=== PATIENT | male | born 1970 | race American Indian/Alaskan Native ===

== ENCOUNTER 2017-03-04 08:15 | Emergency (ER) | payer SELFPAY ==
[2017-03-04 09:13] LABS: Alanine Aminotransferase 20 units/L (7-56); Albumin 3.8 g/dL (3.9-5); Albumin/Globulin Ratio 1.4 %; Alkaline Phosphatase 110 units/L (35-129); Anion Gap 18 mmol/L; Blood Urea Nitrogen 12 mg/dL (9-20); Calcium 8.8 mg/dL (8.4-10.2); Carbon Dioxide 26 mmol/L (22-30); Chloride 98.4 mmol/L (98-107); Glucose 439 mg/dL (75-100); Lipase 32 units/L (13-60); Potassium 4.1 mmol/L (3.6-5.0); Sodium 138 mmol/L (137-145); Total Protein 6.5 g/dL (6.3-8.2)
[2017-03-04 09:17] LABS: Basophils % (Auto) 0.4 % (0.0-1.8); Eosinophils % (Auto) 2.1 % (0.0-4.3); Hematocrit 40.6 % (35.5-45.6); Hemoglobin 12.9 gm/dl (11.8-15.2); Mean Corpuscular HGB Conc 32 % (32-34); Mean Corpuscular Hemoglobin 28 pg (28-32); Mean Corpuscular Volume 87 fl (84-94); Platelet Count 253 K/mm3 (140-440); Red Blood Count 4.68 M/mm3 (3.65-5.03); Red Cell Distribution Width 13.7 % (13.2-15.2)
[2017-03-04 09:36] LABS: Bilirubin,Urine NEG (Negative); Blood,Urine NEG (Negative); Ketones,Urine NEG (Negative); Leukocyte Esterase,Urine NEG (Negative); Nitrite,Urine NEG (Negative); Protein,Urine <15 mg/dL mg/dL (Negative); Urobilinogen,Urine < 2.0 mg/dL (<2.0)
[2017-03-04] MEDS ORDERED: NACL 0.9% 1000 ML 1,000 ML IV ONE (18:12)
[2017-03-04] MEDS ORDERED: NACL ONE (18:38)
--- NOTE | 2017-03-04 18:48 | Emergency Department Report ---
HPI - General Chief Complaint: Abdominal Pain Time Seen by Provider: 03/04/17 17:55 - HPI HPI: This is a 46-year-old Afro-Turkish male presents to the emergency department from home with complaint of a 3 to four-week history of right lower quadrant abdominal and flank pain, worst in the flank. It starts off mostly intermittent but has gotten progressively worse and more consistent over the past few days. He denies any problems with bowel or bladder, penile discharge, nausea or vomiting, fever. He tried Tylenol for his discomfort once or twice with some transient relief. He has a history of insulin-dependent diabetes and has been out of his medication secondary to the fact that he does not have a primary care doctor or any current insurance. No recent travel or sick contacts at home. ED Past Medical Hx - Past Medical History Previous Medical History?: Yes Hx Diabetes: Yes - Surgical History Past Surgical History?: No - Social History Smoking Status: Current Every Day Smoker Substance Use Type: Alcohol, Prescribed - Medications Home Medications: Home Medications Medication Instructions Recorded Confirmed Last Taken Type Insulin Glargine,Hum.rec.anlog 6 units SQ QHS #1 pen 03/04/17 Unknown Rx [Lantus Solostar] ED Review of Systems ROS: Stated complaint: RT SIDE ABD PAIN Other details as noted in HPI Comment: All other systems reviewed and negative Constitutional: denies: chills, fever Eyes: denies: eye pain, eye discharge, vision change ENT: denies: ear pain, throat pain Respiratory: denies: cough, shortness of breath, wheezing Cardiovascular: denies: chest pain, palpitations Gastrointestinal: abdominal pain. denies: nausea, vomiting Genitourinary: denies: urgency, dysuria Musculoskeletal: denies: back pain, joint swelling, arthralgia Skin: denies: rash, lesions Neurological: denies: headache, weakness, paresthesias Physical Exam - Physical Exam Vital Signs: Vital Signs 03/04/17 08:20 Temperature 98 F Pulse Rate 104 H Respiratory 20 Rate Blood Pressure 144/87 O2 Sat by Pulse 100 Oximetry Physical Exam: GENERAL: The patient is well-developed well-nourished. HEENT: Normocephalic. Atraumatic. Extraocular motions are intact. Patient has moist mucous membranes. Pupils equal reactive to light bilaterally. NECK: Supple. Trachea is midline. CHEST/LUNGS: Clear to auscultation. There is no respiratory distress noted. HEART/CARDIOVASCULAR: Regular. There is no tachycardia. There is no gallop rub or murmur. ABDOMEN: Abdomen is soft, nontender. No guarding or rebound tenderness. Patient has normal bowel sounds. There is no abdominal distention. SKIN: Skin is warm and dry. NEURO: The patient is awake, alert, and oriented. The patient is cooperative. The patient has no focal neurologic deficits. The patient has normal speech. MUSCULOSKELETAL: There is no tenderness or deformity. There is no limitation range of motion. There is no evidence of acute injury. ED Course Vital Signs 03/04/17 08:20 Temperature 98 F Pulse Rate 104 H Respiratory 20 Rate Blood Pressure 144/87 O2 Sat by Pulse 100 Oximetry - Consultations Consultation #1: I spoke with the general surgeon on-call, Dr. Mosquera, who listened to the case presentation, lab results and imaging results. He agrees that since the patient does not have any significant discomfort, does not have a toxic or rigid abdomen, does not have any fever or leukocytosis, that the patient is most likely safe for discharge home to follow up outpatient. He does recommend checking a lactic acid level. He says that if the patient needs admission that he would be willing to follow as a consult or he is willing to see the patient in the outpatient setting. 03/04/17 22:10 ED Medical Decision Making - Lab Data Result diagrams: 03/04/17 08:30 03/04/17 08:30 - Radiology Data Radiology results: report reviewed EXAM: CT ABDOMEN PELVIS W CON HISTORY: Right flank pain TECHNIQUE: Serial axial images through the abdomen and pelvis during intravenous administration of contrast with coronal and sagittal reconstruction. PRIORS: None. FINDINGS: No focal consolidations are seen in the lung bases. No pleural effusion is seen. The liver, pancreas, spleen, gallbladder and adrenal glands appear within normal limits. Kidneys appear normal. Aorta is normal in caliber. Bladder appears normal. No free fluid. There is not evidence of bowel obstruction. The appendix appears normal. The stomach is distended with gastric contents. The duodenum appears to course to the right rather than across midline. There crowding of small bowel in the right upper quadrant of the abdomen. No acute osseous abnormality is identified. IMPRESSION: 1. The stomach is distended with gastric contents. Possibility of partial outlet obstruction is not excluded. 2. The duodenum appears to course to the right side of the abdomen. There is crowding of small bowel loops in the right side of the abdomen. This suggests malrotation. The configuration of the mesenteric veins also suggests this. This can be further assessed with upper GI study. - Medical Decision Making This is a 46-year-old male with a 3 to four-week history of right flank pains that have gotten slightly more painful and consistent. However on physical examination there is no reproducible pain in the patient does not appear to be in any distress. There are no problems with bowel or bladder, hematuria, fever. Patient's labs are mostly unremarkable except for hyperglycemia with a blood sugar of about 450. There is no elevated anion gap the patient does not appear to be in diabetic ketoacidosis. He was given a 1 L of IV fluid and 7 units of IV insulin and upon reevaluation his blood sugars down to 180. There is no leukocytosis and the patient has normal belly labs including bilirubin, lipase and LFTs. There is no Achilles function. Urinalysis does not show any urinary tract infection or any hematuria. A CT of the abdomen and pelvis with IV contrast was done that came back showing some gastric distention that could be some level of a obstruction and there is some reversal of the duodenal intestines that shows some malrotation. I spoke with the general surgeon on- call who said that based on the physical examination, vitals, labs that the patient does not appear to necessarily need admission. A lactic acid was also checked and it was in the normal range so there is also low suspicion for any mesenteric ischemia or any serious acute process. Probably reasons the patient appears safe for discharge home and is asking for discharge home as well. He will be encouraged to follow-up with a primary care doctor and has been given the general surgery referral as well. The patient was given a refill of his Lantus pen as he says this is all he is to take for his diabetes and we also discussed dietary changes to me. He will return to the ER immediately with any worsening of symptoms or any acute distress. - Differential Diagnosis food poisoning, nephrolithiasis, cholecystitis, colitis, diverticulitis Critical Care Time: No Critical care attestation.: If time is entered above; I have spent that time in minutes in the direct care of this critically ill patient, excluding procedure time. ED Disposition Clinical Impression: Right flank pain, Malrotation of intestine, Hyperglycemia Uncontrolled diabetes mellitus Qualifiers: Diabetes mellitus type: type 1 Diabetes mellitus complication status: with hyperglycemia Qualified Code(s): E10.65 - Type 1 diabetes mellitus with hyperglycemia Disposition: DISCHARGED TO HOME OR SELFCARE Is pt being admited?: No Condition: Stable Instructions: Flank Pain (ED), Diabetic Hyperglycemia (ED) Additional Instructions: Please follow-up with the general surgeon as soon as possible. Please find a primary care physician to follow up with as well. Please restart your Lantus as previously prescribed. Check your blood sugar multiple times each day. Try to stay away from foods that are high in sugar, carbohydrates and starches in order to help your diabetes. Return to the emergency department with any worsening of her symptoms, intractable vomiting, intractable abdominal pains, or any acute distress. Prescriptions: Insulin Glargine,Hum.rec.anlog [Lantus Solostar] 6 units SQ QHS #1 pen Referrals: PRIMARY CARE, [Primary Care Provider] - 3-5 Days BRUNA MOSQUERA MD [Staff Physician] - 3-5 Days [facility] [Outside] - 3-5 Days [facility] [Outside] - 3-5 Days [facility] [Outside] - 3-5 Days Time of Disposition: 22:15
--- NOTE | 2017-03-04 20:21 | Cat Scan Report ---
FINAL REPORT EXAM: CT ABDOMEN PELVIS W CON HISTORY: Right flank pain TECHNIQUE: Serial axial images through the abdomen and pelvis during intravenous administration of contrast with coronal and sagittal reconstruction. PRIORS: None. FINDINGS: No focal consolidations are seen in the lung bases. No pleural effusion is seen. The liver, pancreas, spleen, gallbladder and adrenal glands appear within normal limits. Kidneys appear normal. Aorta is normal in caliber. Bladder appears normal. No free fluid. There is not evidence of bowel obstruction. The appendix appears normal. The stomach is distended with gastric contents. The duodenum appears to course to the right rather than across midline. There crowding of small bowel in the right upper quadrant of the abdomen. No acute osseous abnormality is identified. IMPRESSION: 1. The stomach is distended with gastric contents. Possibility of partial outlet obstruction is not excluded. 2. The duodenum appears to course to the right side of the abdomen. There is crowding of small bowel loops in the right side of the abdomen. This suggests malrotation. The configuration of the mesenteric veins also suggests this. This can be further assessed with upper GI study.
[2017-03-04 22:34] VITALS: BP 131/77
== END 2017-03-04 22:35 | disposition home or self-care (01) ==
LOC: ED 08:15
DX: E10.65 Type 1 diabetes mellitus with hyperglycemia (principal); R10.31 Right lower quadrant pain; Q43.3 Congenital malformations of intestinal fixation; F17.200 Nicotine dependence, unspecified, uncomplicated
CPT/HCPCS: 36415; 74177; 80053; 81001; 82140; 82962; 83036; 83690; 85025; 96361; 96374; 99284; J7030; Q9967; J1815

== ENCOUNTER 2018-01-30 09:41 | Emergency (ER) | payer OTHER ==
[2018-01-30] MEDS ORDERED: NACL 0.9% 1000 ML 1,000 ML IV ONE (11:56)
--- NOTE | 2018-01-30 12:00 | Emergency Department Report ---
ED Abdominal Pain HPI - General Chief Complaint: Abdominal Pain Stated Complaint: LEFT LOWER ABD PAIN Time Seen by Provider: 01/30/18 11:54 Source: patient Mode of arrival: Ambulatory Limitations: No Limitations - History of Present Illness Initial Comments: Pt reports that he has been having L side abdominal pain for the past 4 weeks, on and off, associated with diarrhea at night. States during the day he is OK but over the past week has started to have some intermittent nausea/vomiting. Has never had colonoscopy. There is no family history of colon cancer. MD Complaint: abdominal pain -: Gradual, week(s) Location: LLQ Radiation: none Migration to: no migration Severity: moderate Severity scale (0 -10): 5 Quality: aching Consistency: intermittent Improves With: nothing Worsens With: nothing, vomiting Associated Symptoms: nausea, vomiting, diarrhea - Related Data Previous Rx's Medication Instructions Recorded Last Taken Type Insulin Glargine,Hum.rec.anlog 6 units SQ QHS #1 pen 03/04/17 Unknown Rx [Lantus Solostar] Dicyclomine [Bentyl] 20 mg PO QID PRN #30 capsule 01/30/18 Unknown Rx Promethazine [Phenergan TAB] 25 mg PO Q6HR PRN #12 tab 01/30/18 Unknown Rx Allergies Allergy/AdvReac Type Severity Reaction Status Date / Time No Known Allergies Allergy Verified 01/30/18 09:46 ED Review of Systems ROS: Stated complaint: LEFT LOWER ABD PAIN Other details as noted in HPI Comment: All other systems reviewed and negative Constitutional: denies: chills, fever Eyes: denies: eye pain, eye discharge, vision change ENT: denies: ear pain, throat pain Respiratory: denies: cough, shortness of breath, wheezing Cardiovascular: denies: chest pain, palpitations Endocrine: no symptoms reported Gastrointestinal: abdominal pain, nausea, vomiting, diarrhea. denies: constipation Genitourinary: denies: urgency, dysuria Musculoskeletal: denies: back pain, joint swelling, arthralgia Skin: denies: rash, lesions Neurological: denies: headache, weakness, paresthesias Psychiatric: denies: anxiety, depression Hematological/Lymphatic: denies: easy bleeding, easy bruising ED Past Medical Hx - Past Medical History Hx Diabetes: Yes - Surgical History Past Surgical History?: No - Social History Smoking Status: Current Every Day Smoker Substance Use Type: Alcohol - Medications Home Medications: Home Medications Medication Instructions Recorded Confirmed Last Taken Type Insulin Glargine,Hum.rec.anlog 6 units SQ QHS #1 pen 03/04/17 Unknown Rx [Lantus Solostar] Dicyclomine [Bentyl] 20 mg PO QID PRN #30 capsule 01/30/18 Unknown Rx Promethazine [Phenergan TAB] 25 mg PO Q6HR PRN #12 tab 01/30/18 Unknown Rx ED Physical Exam - General Limitations: No Limitations General appearance: alert, in no apparent distress - Head Head exam: Present: atraumatic, normocephalic - Eye Eye exam: Present: normal appearance - ENT ENT exam: Present: mucous membranes moist - Neck Neck exam: Present: normal inspection - Respiratory Respiratory exam: Present: normal lung sounds bilaterally. Absent: respiratory distress - Cardiovascular Cardiovascular Exam: Present: regular rate, normal rhythm. Absent: systolic murmur, diastolic murmur, rubs, gallop - GI/Abdominal GI/Abdominal exam: Present: soft, tenderness (LLQ), normal bowel sounds. Absent : distended, guarding, rebound, rigid - Rectal Rectal exam: Present: deferred - Extremities Exam Extremities exam: Present: normal inspection - Back Exam Back exam: Present: normal inspection - Neurological Exam Neurological exam: Present: alert, oriented X3 - Psychiatric Psychiatric exam: Present: normal affect, normal mood - Skin Skin exam: Present: warm, dry, intact, normal color. Absent: rash ED Course Vital Signs 01/30/18 09:46 Temperature 98.6 F Pulse Rate 106 H Respiratory 16 Rate Blood Pressure 151/82 O2 Sat by Pulse 100 Oximetry - Reevaluation(s) Reevaluation #1: 01/30/18 12:00 Will get labs and CT. If negative, patient will need urgent follow up with GI for colonoscopy. Reevaluation #2: 01/30/18 15:54 Abdomen re-examined and remains soft. Pt tolerating PO. Stable for d/c. ED Medical Decision Making - Lab Data Result diagrams: 01/30/18 12:20 01/30/18 12:20 small blood in urine - Radiology Data Radiology results: report reviewed no acute findings on CT A/P - Medical Decision Making I discussed with patient that although his labs and CT are unremarkable, he must follow up for colonoscopy given new onset bowel changes and abdominal pain. Today, labs and CT are unremarkable and he has remained stable through ER course. IVF given due to mild hyperglycemia. - Differential Diagnosis colon ca, colitis, diverticulitis Critical care attestation.: If time is entered above; I have spent that time in minutes in the direct care of this critically ill patient, excluding procedure time. ED Disposition Clinical Impression: Abdominal pain Qualifiers: Abdominal location: left lower quadrant Qualified Code(s): R10.32 - Left lower quadrant pain Diarrhea Qualifiers: Diarrhea type: unspecified type Qualified Code(s): R19.7 - Diarrhea, unspecified Disposition: TO HOME OR SELFCARE Is pt being admited?: No Condition: Stable Instructions: Abdominal Pain (ED) Additional Instructions: Your labs were essentially normal today outside of an elevated glucose and a small amount of blood in your urine. You will need to follow up with a PCP for repeat urinalysis to ensure that this resolves. As discussed, it is necessary and important to follow up with GI closely for evaluation and colonoscopy as discussed. Prescriptions: Dicyclomine [Bentyl] 20 mg PO QID PRN #30 capsule PRN Reason: pain/cramping Promethazine [Phenergan TAB] 25 mg PO Q6HR PRN #12 tab PRN Reason: Nausea Referrals: PRIMARY CAREMD [Primary Care Provider] - 3-5 Days ANASTASIA GARRISON MD [Staff Physician] - 3-5 Days Time of Disposition: 15:51
[2018-01-30 13:01] LABS: Basophils # (Auto) 0.1 K/mm3 (0.0-0.1); Basophils % (Auto) 0.8 % (0.0-1.8); Eosinophils # (Auto) 0.1 K/mm3 (0.0-0.4); Eosinophils % (Auto) 1.5 % (0.0-4.3); Hematocrit 40.1 % (35.5-45.6); Hemoglobin 13.2 gm/dl (11.8-15.2); Lymphocytes # (Auto) 2.1 K/mm3 (1.2-5.4); Lymphocytes % (Auto) 25.6 % (13.4-35.0); Mean Corpuscular HGB Conc 33 % (32-34); Mean Corpuscular Hemoglobin 28 pg (28-32); Mean Corpuscular Volume 85 fl (84-94); Monocytes # (Auto) 0.6 K/mm3 (0.0-0.8); Monocytes % (Auto) 7.5 % (0.0-7.3); Platelet Count 277 K/mm3 (140-440); Red Cell Distribution Width 14.6 % (13.2-15.2)
[2018-01-30 13:22] LABS: Bilirubin,Urine NEG (Negative); Blood,Urine SM (Negative); Color,Urine Yellow (Yellow); Mucus,Urine FEW /HPF; Urobilinogen,Urine < 2.0 mg/dL (<2.0)
[2018-01-30 13:34] LABS: Alanine Aminotransferase 19 units/L (7-56); Albumin 4.1 g/dL (3.9-5); BUN/Creatinine Ratio 21; Blood Urea Nitrogen 17 mg/dL (9-20); Calcium 9.3 mg/dL (8.4-10.2); Hemolysis Index 14; Lipase 57 units/L (13-60)
[2018-01-30] MEDS ORDERED: NACL ONE (14:20)
--- NOTE | 2018-01-30 15:18 | Cat Scan Report ---
FINAL REPORT PROCEDURE: CT ABDOMEN PELVIS W CON TECHNIQUE: Computerized axial tomography of the abdomen and pelvis was performed after the IV injection of iodinated nonionic contrast. HISTORY: LLQ pain COMPARISON: 03/04/2017 FINDINGS: Visualized lower thorax: No significant abnormality. Liver: Normal size and attenuation. Spleen: Normal size and attenuation. Gallbladder and biliary system: Normal. Pancreas: Normal. Adrenals: Normal. Kidneys: Normal. GI tract: No bowel obstruction or acute inflammation. The appendix is visualized and does not appear inflamed. Lymph nodes and mesentery: Normal. Vasculature: Normal. Bladder: Normal. Reproductive organs: Normal. Peritoneum: No free fluid. Musculoskeletal structures: No significant abnormality. Other: None. IMPRESSION: No bowel obstruction or acute inflammation
[2018-01-30 16:16] VITALS: BP 128/82
== END 2018-01-30 16:13 | disposition home or self-care (01) ==
LOC: ED 09:41
DX: R10.32 Left lower quadrant pain (principal); R11.2 Nausea with vomiting, unspecified; R19.7 Diarrhea, unspecified; E11.9 Type 2 diabetes mellitus without complications; F17.200 Nicotine dependence, unspecified, uncomplicated; Z79.4 Long term (current) use of insulin
CPT/HCPCS: 36415; 74177; 80053; 81001; 83690; 85025; 96360; 99284; J7030; Q9967

== ENCOUNTER 2018-02-22 06:10 | Emergency (ER) | payer OTHER ==
[2018-02-22] MEDS ORDERED: TESSALON PERLES PO ONE (09:33)
[2018-02-22] MEDS ORDERED: TORADOL IM ONE (09:33)
--- NOTE | 2018-02-22 09:49 | Emergency Department Report ---
- General Chief Complaint: Upper Respiratory Infection Stated Complaint: FLU LIKE SX Time Seen by Provider: 02/22/18 09:19 Source: patient Mode of arrival: Ambulatory Limitations: No Limitations - History of Present Illness Initial Comments: 47-year-old male with a past medical history of diabetes type 2 (currently on insulin) resents to the hospital complaining of denies body aches, nonproductive cough, sneezing, diarrhea, left lower back pain. Overall generous body aches moderate in intensity. Symptoms progressively worsening for the past 4 days. No documented fever with sweats at night voiding. Patient denies recent travel, sick contacts, receiving flu shot, or recent antibiotics. No complaints of headache, sore throat, chest pain, shortness of breath, abdominal pain, dysuria, or hematuria. - Related Data Previous Rx's Medication Instructions Recorded Last Taken Type Insulin Glargine,Hum.rec.anlog 6 units SQ QHS #1 pen 03/04/17 Unknown Rx [Lantus Solostar] Dicyclomine [Bentyl] 20 mg PO QID PRN #30 capsule 01/30/18 Unknown Rx Promethazine [Phenergan TAB] 25 mg PO Q6HR PRN #12 tab 01/30/18 Unknown Rx Azithromycin [Zithromax Z-CONCHIS] 1 dose PO DAILY #5 day 02/22/18 Unknown Rx Benzonatate [Tessalon Perles] 100 mg PO Q8HR PRN #20 capsule 02/22/18 Unknown Rx Ibuprofen [Motrin] 800 mg PO Q8HR PRN #20 tablet 02/22/18 Unknown Rx Loperamide [Imodium] 2 mg PO Q2HR PRN #20 capsule 02/22/18 Unknown Rx Allergies Allergy/AdvReac Type Severity Reaction Status Date / Time No Known Allergies Allergy Verified 01/30/18 09:46 ED Review of Systems ROS: Stated complaint: FLU LIKE SX Other details as noted in HPI Comment: All other systems reviewed and negative ED Past Medical Hx - Past Medical History Previous Medical History?: Yes Hx Diabetes: Yes - Surgical History Past Surgical History?: No - Social History Smoking Status: Current Every Day Smoker Substance Use Type: None - Medications Home Medications: Home Medications Medication Instructions Recorded Confirmed Last Taken Type Insulin Glargine,Hum.rec.anlog 6 units SQ QHS #1 pen 03/04/17 Unknown Rx [Lantus Solostar] Dicyclomine [Bentyl] 20 mg PO QID PRN #30 capsule 01/30/18 Unknown Rx Promethazine [Phenergan TAB] 25 mg PO Q6HR PRN #12 tab 01/30/18 Unknown Rx Azithromycin [Zithromax Z-CONCHIS] 1 dose PO DAILY #5 day 02/22/18 Unknown Rx Benzonatate [Tessalon Perles] 100 mg PO Q8HR PRN #20 capsule 02/22/18 Unknown Rx Ibuprofen [Motrin] 800 mg PO Q8HR PRN #20 tablet 02/22/18 Unknown Rx Loperamide [Imodium] 2 mg PO Q2HR PRN #20 capsule 02/22/18 Unknown Rx ED Physical Exam - General Limitations: No Limitations - Other Other exam information: General: No limitations, patient is alert in no acute distress Head exam: Atraumatic, normocephalic Eyes exam: Normal appearance, pupils equal reactive to light, extraocular movements intact ENT: Moist mucous membrane, normal oropharynx no exudates Neck exam: Normal inspection, full range of motion, no meningismus nontender Respiratory exam: Clear to auscultation bilateral, no wheezes, rales, crackles Cardiovascular: Mild tachycardia normal rhythm Abdomen: Soft, nondistended, and nontender, with normal bowel sounds, no rebound, or guarding Extremity: Full range of motion normal inspection no deformity Back: Normal Inspection, full range of motion, no midline tenderness, left flank and paraspinal muscle tenderness on palpation Neurologic: Alert, oriented x3, cranial nerves intact, no motor or sensory deficit Psychiatric: normal affect, normal mood Skin: Warm, dry, intact ED Course Vital Signs 02/22/18 02/22/18 06:15 11:13 Temperature 98.6 F Pulse Rate 104 H 101 H Respiratory 20 Rate Blood Pressure 124/76 Blood Pressure 146/88 [Left] O2 Sat by Pulse 99 Oximetry - Reevaluation(s) Reevaluation #1: 02/22/18 09:49 treated with Tessalon Perles, Toradol, rapid flu pending ED Medical Decision Making - Radiology Data Radiology results: image reviewed (cxr: naf read by me) - Medical Decision Making Symptoms are suggestive of viral syndrome Influenza negative Abdomen nontender No urinary symptoms Positive diarrhea, cough, sneezing, and body ache He will be treated symptomatically and Z-Conchis to cover for atypical/bronchitis - Differential Diagnosis pneumonia, bronchitis, viral syndrome Critical Care Time: No Critical care attestation.: If time is entered above; I have spent that time in minutes in the direct care of this critically ill patient, excluding procedure time. ED Disposition Clinical Impression: Viral syndrome Disposition: DC- TO HOME OR SELFCARE Is pt being admited?: No Does the pt Need Aspirin: No Condition: Stable Instructions: Viral Syndrome (ED) Additional Instructions: Take the medication as prescribed. Return if symptoms worsen. Follow-up with your doctor for further treatment Prescriptions: Azithromycin [Zithromax Z-CONCHIS] 1 dose PO DAILY #5 day Benzonatate [Tessalon Perles] 100 mg PO Q8HR PRN #20 capsule PRN Reason: Cough Ibuprofen [Motrin] 800 mg PO Q8HR PRN #20 tablet PRN Reason: Pain Loperamide [Imodium] 2 mg PO Q2HR PRN #20 capsule PRN Reason: Diarrhea Referrals: PRIMARY CARE, [Primary Care Provider] - 3-5 Days Time of Disposition: 11:40
[2018-02-22 11:14] VITALS: BP 146/88
--- NOTE | 2018-02-22 13:26 | XRay Report ---
ROUTINE CHEST, TWO VIEWS: Cough, body aches. PA and lateral views demonstrate the heart and mediastinal contour to be of normal size and shape. The lungs are clear and fully expanded and the soft tissues and bony structures are normal. IMPRESSION: Normal study.
== END 2018-02-22 12:02 | disposition home or self-care (01) ==
LOC: ED 06:10
DX: B34.9 Viral infection, unspecified (principal); F17.200 Nicotine dependence, unspecified, uncomplicated
CPT/HCPCS: 71046; 87400; 96372; 99283; J1885